=== PATIENT | female | born 1995 | race Caucasian/White ===

== ENCOUNTER 2017-01-26 08:18 | Emergency (ER) | payer OTHER ==
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
--- NOTE | 2017-01-27 21:36 | ED MAR SUMMARY ---
..... Medication Administration Record [facility] [address] [place], [place] [id number] Patient: KANDI ALARCON Visit ID: [id number] 22y, F Weight: 86.1 kg Height/Length: 64 in BMI: 32.6 ALLERGIES: Amoxicillin
--- NOTE | 2017-01-27 21:36 | ED ORDER SUMMARY ---
..... Patient: KANDI ALARCON OrderSheet [facility] VisitID: [id number] [address] [place] [address] 22y, F Registration Date/Time: 01/26/2017 ORDER SHEET Weight: 86.1 kg (stated) Allergies: Amoxicillin GENERAL ORDERS: US OB 1st Trimester (11 weeks) Urgent (09:47 01/26/2017 LNations ER Tech1 verbal order read back to Lashon Bo) (Ack 9:49 LNations ER Tech1) (Cancelled: Other11:07 Liliane) US OB 1st Trimester w Transvag (11/03/16) Urgent (11:06 01/26/2017 Liliane verbal order read back to Lashon Bo) (11:07 Liliane) MEDICATION ORDERS: IV FLUIDS: ORDER SHEET NOTES: [Electronically signed by Shweta Villalba R.N. (11:42 01/26/2017)] [Electronically signed by Fabian Mendenhall Dr. (21:36 01/27/2017)] [Electronically locked/signed by Shweta Villalba R.N. (11:42 01/26/2017)]
--- NOTE | 2017-01-27 21:36 | ED MAR SUMMARY ---
..... Medication Administration Record [facility] [address] [place], [place] [id number] Patient: KANDI ALARCON Visit ID: [id number] 22y, F Weight: 86.1 kg Height/Length: 64 in BMI: 32.6 ALLERGIES: Amoxicillin
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
--- NOTE | 2017-01-27 21:36 | ED ORDER SUMMARY ---
..... Patient: KANDI ALARCON OrderSheet [facility] VisitID: [id number] [address] [place] [address] 22y, F Registration Date/Time: 01/26/2017 ORDER SHEET Weight: 86.1 kg (stated) Allergies: Amoxicillin GENERAL ORDERS: US OB 1st Trimester (11 weeks) Urgent (09:47 01/26/2017 LNations ER Tech1 verbal order read back to Lashon Bo) (Ack 9:49 LNations ER Tech1) (Cancelled: Other11:07 Liliane) US OB 1st Trimester w Transvag (11/03/16) Urgent (11:06 01/26/2017 Liliane verbal order read back to Lashon Bo) (11:07 Liliane) MEDICATION ORDERS: IV FLUIDS: ORDER SHEET NOTES: [Electronically signed by Shweta Villalba R.N. (11:42 01/26/2017)] [Electronically signed by Fabian Mendenhall Dr. (21:36 01/27/2017)] [Electronically locked/signed by Shweta Villalba R.N. (11:42 01/26/2017)]
--- NOTE | 2017-01-27 21:36 | ED MED RECONCILIATION SUMMARY ---
Patient: KANDI ALARCON Medication Reconciliation Report [facility] VisitID: [id number] [address] [place] [address] 22y, F Registration Date/Time: 01/26/2017 Weight: 86.1 kg Height/Length: 64 in. BMI: 32.6 ALLERGIES: Amoxicillin The patient's Home Medications are listed below: NONE. The source(s) of the original Home Medication information: patient The following Medications were given to the patient in the Emergency Department: None. The following Medications were prescribed to the patient: None.
--- NOTE | 2017-01-27 21:36 | ED MED RECONCILIATION SUMMARY ---
Patient: KANDI ALARCON Medication Reconciliation Report [facility] VisitID: [id number] [address] [place] [place] [address] 22y, F Registration Date/Time: 01/26/2017 Weight: 86.1 kg Height/Length: 64 in. BMI: 32.6 ALLERGIES: Amoxicillin The patient's Home Medications are listed below: NONE. The source(s) of the original Home Medication information: patient The following Medications were given to the patient in the Emergency Department: None. The following Medications were prescribed to the patient: None.
== END 2017-01-26 11:05 | disposition home or self-care (01) ==
LOC: ED SRH 08:18
DX: O9A.211 Injury, poisoning and certain other consequences of external causes complicating pregnancy, first trimester (principal); S80.02XA Contusion of left knee, initial encounter; S80.212A Abrasion, left knee, initial encounter; Z3A.11 11 weeks gestation of pregnancy; V49.49XA Driver injured in collision with other motor vehicles in traffic accident, initial encounter; Y93.89 Activity, other specified; Y92.410 Unspecified street and highway as the place of occurrence of the external cause; Y99.9 Unspecified external cause status; Z88.0 Allergy status to penicillin